=== PATIENT | male | born 1965 | race Caucasian/White ===

== ENCOUNTER 2022-05-19 09:41 | Outpatient (CLI) | payer OTHER, SELFPAY ==
--- NOTE | ~2022-05-19 | MR_ITS ---
EXAMINATION: MR hip RT wo/w con DATE: 05/19/2022 10:52 INDICATION: Right hip pain TECHNIQUE: Magnetic resonance imaging (MRI) of the right hip was performed without and with 15 mL Mu ltihance intravenous contrast. Sequences included full-field axial PD-weighted FS FSE and T1-weighted FSE, coronal of the pelvis with PD-weighted FS FSE, T2-weighted FSE and T1-weighted FSE, small field of view of the right hip with axial PD-weighted FS FSE, sagittal PD-weighted FS FSE, coronal PD-maycol ghted FS FSE and coronal T2 weighted FSE. Radial T1-weighted FGR oriented orthogonal to the acetabul ar rim were obtained for evaluation of the labrum were obtained. Additionally postcontrast axial and large [id number]-zh-qtdf of the pelvis and small slcnd-lb-svap sagittal of the right hip T1-weighted FS FS E sequences were obtained following administration of intravenous contrast. COMPARISON: None FINDINGS: Bones/labrum/cartilage: Alignment is normal. No fracture, avascular necrosis or pathologic marrow replacing process. There i s a tear along the superolateral right acetabular labrum. Mild right hip osteoarthritis with nonunifo rm mild partial-thickness cartilage loss with smooth chondral surface and without degenerative subcho ndral changes. No enhancing synovitis or erosions. Mild lower lumbar spondylosis. Fluid: Symmetric physiologic amount of fluid within both hip joints. Soft tissues: Normal and symmetric muscle bulk and signal in the pelvis and visualized proximal thighs. The iliopso as, gluteal and proximal hamstring tendons are normal. There is nonspecific circumferential wall thic kening at the anus. Limited evaluation of visceral organs of the pelvis is otherwise unremarkable. N o pathologically enlarged pelvic/inguinal lymphadenopathy. IMPRESSION: 1. Mild right hip osteoarthritis with tear of the superolateral right acetabular labrum. 2. Nonspecific wall thickening at the anus with differential including hemorrhoids, inflammatory proc titis or less likely malignancy. Correlate with digital rectal exam. Reviewed, dictated and finalized at location A. [facility] IMPRESSION: 1. Mild right hip osteoarthritis with tear of the superolateral right acetabula r labrum. 2. Nonspecific wall thickening at the anus with differential including hemorrho ids, inflammatory proctitis or less likely malignancy. Correlate with digital r ectal exam.
== END 2022-05-19 09:42 | disposition home or self-care (01) ==
PROVIDERS: Visit Provider Orthopaedic Surgery
DX: M16.11 Unilateral primary osteoarthritis, right hip (principal)
CPT/HCPCS: 73723; A9577